=== PATIENT | female | born 1945 | race Caucasian/White ===

== ENCOUNTER 2018-06-18 08:47 | Emergency (ER) | payer OTHER, MEDICARE ==
[~2018-06-18] VITALS: Ht 167.6 cm; Wt 80.7 kg
--- NOTE | ~2018-06-18 | EKG ---
[address] [address] ELECTROCARDIOGRAM REPORT Name: ANJU BAIN [facility] [id number] Admission: 06/18/18 Attend Phys: Discharge: 06/18/18 Date of : 43 Report #: [id number] THIS REPORT FOR: //name// [facility] ED Test Date: 2018-06-18 Test Time: 09:25:42 Pat Name: ANJU BAIN Department: Room: Gender: F Date Night Caregiver: : 1945 Requested By: Cleo Joy Order Number: [id number] MD: Magdi Amaral Measurements Intervals [place] Rate: 77 P: 34 KS: 133 QRS: -25 QRSD: 83 T: 2 QT: 372 QTc: 421 Interpretive Statements Sinus rhythm Borderline left axis deviation Compared to ECG 12/24/2014 20:40:57 ST (T wave) deviation no longer present Electronically Signed On 06-20-2018 17:26:54 CDT by Magdi Amaral [email or web address] <ELECTRONICALLY SIGNED> By: Magdi Amaral MD 06/20/18 1726 4 4 Magdi Amaral MD /[place]
[~2018-06-18 08:47] MED LIST: ATENOLOL 25 MG25 M1 PO; ATENOLOL 50MG T50 MG PO; COLACE100 MG PO; LEVOTHYROXINE 0.15MG PO; LISINOPRIL10 MG PO; LISINOPRIL20 MG PO; MOM PO; NEXIUM40 MG PO; NORCO 5-325 TA1 EACH PO; PERCOCET PO; PRILOSEC 20 MG20 MG PO; SUPER B COMPLE150 MG PO; TYLENOL325 MG PO; UNICOMPLEX M TA1 TA1 PO; VITAMIN B-1100 M1 PO; VITAMIN D-32000 UNIT PO; VOLTAREN GEL 1100 G2 TOP; XARELTO10 MG PO; ZESTRIL30 MG PO; ZOLOFT50 MG PO
[2018-06-18] MEDS ORDERED: DEXILANT60 MG PO (09:06)
[2018-06-18 09:26] LABS: HEMATOCRIT 31.4 % (37.0-47.0); HEMOGLOBIN 10.7 gm/dL (12.0-15.0); MCH 30.7 pg (26.0-34.0); MCV 90.3 fL (80.0-100.0); RBC 3.48 mil/uL (4.20-5.00); RDW 14.1 % (10.5-14.5); WBC 7.6 thou/uL (4.0-11.0)
[2018-06-18 09:27] LABS: URINE BILIRUBIN NEGATIVE (Negative); URINE BLOOD TRACE (Negative); URINE CLARITY CLEAR; URINE COLOR YELLOW; URINE GLUCOSE-RANDOM* NEGATIVE (Negative); URINE KETONES NEGATIVE (Negative); URINE LEUKOCYTES-REFLEX NEGATIVE (Negative); URINE NITRITE-REFLEX NEGATIVE (Negative); URINE PROTEIN (DIPSTICK) NEGATIVE (Negative); URINE SPECIFIC GRAVITY >= 1.030 (1.005-1.035); URINE UROBILINOGEN 0.2 E.U./dl (0.2-1.0)
[2018-06-18 09:30] LABS: ANION GAP 11 mmol/L (7-16); BUN 21 mg/dL (7-18); CALCIUM 9.5 mg/dL (8.5-10.1); CHLORIDE 102 mmol/L (98-107); CO2 24 mmol/L (21-32); CREATININE 1.8 mg/dL (0.6-1.0); GLUCOSE 134 mg/dL (74-106); POTASSIUM 3.9 mmol/L (3.5-5.1); SODIUM 137 mmol/L (136-145)
[2018-06-18 09:38] LABS: ALBUMIN 3.5 g/dL (3.4-5.0); LIPASE 101 U/L (73-393); SGOT 19 U/L (15-37); SGPT 19 U/L (30-65); TOTAL BILIRUBIN 0.6 mg/dL (<0.1-1.0); TOTAL PROTEIN 7.4 g/dL (6.4-8.2); TROPONIN-I <0.06 ng/mL (<0.06)
== END 2018-06-18 13:08 | disposition home or self-care (01) ==
LOC: ER 08:47
PROVIDERS: Student in an Organized Health Care Education/Training Program
DX: N13.8 Other obstructive and reflux uropathy (principal); N20.0 Calculus of kidney; I10 Essential (primary) hypertension; E03.9 Hypothyroidism, unspecified; K21.9 Gastro-esophageal reflux disease without esophagitis; F32.9 Major depressive disorder, single episode, unspecified; G47.30 Sleep apnea, unspecified; Z96.651 Presence of right artificial knee joint; Z85.3 Personal history of malignant neoplasm of breast; Z90.13 Acquired absence of bilateral breasts and nipples; Z90.49 Acquired absence of other specified parts of digestive tract